=== PATIENT | male | born 1970 | race Caucasian/White ===

== ENCOUNTER 2019-02-02 02:38 | Emergency (ER) | payer SELFPAY ==
[~2019-02-02] VITALS: Ht 172.7 cm; Wt 93.0 kg
[2019-02-02 02:47] VITALS: BP 147/97
[2019-02-02] MEDS ORDERED: LIDOCAINE W/ EPINEPHRINE 2% INJ 20ML VIAL IJ ONE (04:00)
== END 2019-02-02 04:34 | disposition home or self-care (01) ==
LOC: ER 02:39
DX: S61.411A Laceration without foreign body of right hand, initial encounter (principal); W26.9XXA Contact with unspecified sharp object(s), initial encounter; Y93.89 Activity, other specified; Y99.8 Other external cause status; Y92.89 Other specified places as the place of occurrence of the external cause
CPT/HCPCS: 12002; 73130